=== PATIENT | male | born 1980 | race Two or more races ===

== ENCOUNTER 2025-07-22 19:30 | Emergency (ER) | payer MEDICAID, SELFPAY ==
[2025-07-22 19:32] VITALS: BMI 37.9
[2025-07-22 20:13] VITALS: BP 141/74; PULSE 106; RESP 18; TEMP 37; O2SAT 95
--- NOTE | 2025-07-22 20:38 | PD.EDSKIN ---
ED Skin Abcess FB-RME/HPI General Chief complaint: Skin/Abscess/Foreign Body Stated complaint: ABSCESS ON BACK OF NECK Time Seen by Provider: 07/22/25 20:22 Arrival date/time: 07/22/25 19:30 RME / HPI RME / HPI narrative: 44-year-old male patient came in for evaluation regarding request for IV antibiotic. Patient is currently seen by PCP, and currently taking Bactrim and Keflex for the last 5 days. Secondary to posterior neck subcutaneous abscess. He had a CT scan done in [place] and showed subcutaneous abscess/phlegmon. Currently patient is not having any pain no redness noted no fever. Patient is requesting for IV antibiotic. Denies any other complaints. Related Data Home Medications ?Medication ?Instructions ?Recorded ?Confirmed lisinopril 20 mg tablet 20 mg PO QDAY #0 tabs 05/15/17 09/13/23 metformin 1,000 mg tablet 1,000 mg PO BID #0 tabs 05/15/17 09/13/23 (Glucophage) simvastatin 40 mg tablet (Zocor) 40 mg PO HS #0 tabs 05/15/17 09/13/23 fenofibrate nanocrystallized 48 mg 48 mg PO 09/13/23 tablet glipizide 2.5 mg tablet, extended 2.5 mg PO 09/13/23 release 24 hr Previous Rx's ?Medication ?Instructions ?Recorded sitagliptin phosphate 50 mg tablet 25 mg (1/2 x 50 mg) PO QDAY #30 05/20/17 (Januvia) tabs acetaminophen 500 mg tablet 1,000 mg (2 x 500 mg) PO QID PRN 02/14/21 (Tylenol Extra Strength) fever or pain #30 tabs nystatin 100,000 unit/gram topical 1 applic topical TID #60 grams 02/14/21 cream sulfamethoxazole 800 1 tab PO BID #14 tabs 09/14/23 mg-trimethoprim 160 mg tablet (Bactrim DS) Allergies Allergy/AdvReac Type Severity Reaction Status Date / Time No Known Allergies Allergy Verified 09/13/23 09:01 Review of Systems Review of Systems Narrative Review of Systems: Review of system reviewed and within normal limits except mentioned in HPI ED Exam Narrative Physical exam: VITAL SIGNS: Reviewed. GENERAL APPEARANCE: Alert and interactive, follows commands, no acute distress, HEAD AND FACE: Non-traumatic. ENT: PERRL, pink conjunctivitis, eyelid no trauma, Mucous membrane moist. NECK: Supple, nontender, no nuchal rigidity. +2x2 cm movable mass noted on the posterior aspect of the neck nontender no redness noted CHEST: No tenderness, no crepitus, no paradoxical movement, no retractions. LUNGS: Clear, well ventilated, symmetric, no rales, no wheezing, no ronchi, no stridor, good breath sounds bilaterally. HEART: Regular rate, regular rhythm, no murmur, no gallops. ABDOMEN: Soft, positive bowel sounds, nondistended, no guarding, nontender, no rebound, no masses, RECTAL: Deferred. GENITAL: Deferred. NEUROLOGICAL: Gross motor function intact sensory function intact, Appropriate for age. MUSCULOSKELETAL: low back nontender, full range of motion. EXTREMITIES: Nontender, full range of motion. SKIN: Color pink, dry, no rash, no lacerations, no abrasions, no contusions. LYMPHATICS: Deferred. Course Quality Measures none Orders Category Date Time Status 1,000 mg IM w/Lido* 1% Med 07/22/25 20:38 Ordered cefTRIAXone [Rocephin] 1,000 mg Lidocaine 1% 20 ml [Xylocaine 1% 20 ML] 2.1 ml IM X1 Vital Signs Vital signs: Vital Signs Temperature 98.6 F 07/22/25 20:13 Pulse Rate 106 H 07/22/25 20:13 Respiratory Rate 18 07/22/25 20:13 Blood Pressure 141/74 H 07/22/25 20:13 Pulse Oximetry (%) 95 07/22/25 20:13 Oxygen Delivery Method Room Air 07/22/25 20:13 Skin / Abscess / Foreign Body MDM Narrative MDM Narrative:: 44-year-old male patient came in for evaluation regarding request for IV antibiotic. Patient is currently seen by PCP, and currently taking Bactrim and Keflex for the last 5 days. Secondary to posterior neck subcutaneous abscess. He had a CT scan done in [place] and showed subcutaneous abscess/phlegmon. Currently patient is not having any pain no redness noted no fever. Patient is requesting for IV antibiotic. Denies any other complaints. Incision and drainage is not needed at this time, the abscess is too deep. Patient will receive ceftriaxone IM and advised him to continue the Keflex and Bactrim and follow-up with PCP. Patient agrees with the plan. Clinically there is no sign of sepsis. Patient data External records reviewed:: None Clinical information provided by:: patient Social determinants that could affect healthcare access:: none Patient has the following chronic illnesses:: None How is presenting disease/condition affected by chronic disease/condition?: no chronic disease Evaluation data The following diagnostics were reviewed and interpreted by me:: other (specify) (None) Lab and/or radiology exams considered but not ordered:: None Interpretation Summary: None Medications / Prescriptions Medications or Prescriptions considered but not ordered:: None Medication administrations:: None Consultations Consultation(s) initiated? (list below): No Diagnosis Skin/Abscess Differential Diagnosis: abscess of skin or subcutaneous tissue, cellulitis and impetigo Most likely diagnosis given after review of the tests above:: Posterior neck abscess Admission Indicated Admission indicated?: not indicated Admission Request Was there a request for admission?: No Disposition Plan Disposition Plan: Discharge Discharge Attestation Discharge Attestation: The patient was given an opportunity to ask questions and understood the discharge instructions. Discharge instructions specifically effects, indications for sooner follow up or return to the emergency department, and the expected course of current diagnosis. Patient condition: Stable Discharge Plan Plan Patient Disposition: HOME (Self Care) Discharge Disposition comment: stable Prescriptions/Referrals Prescriptions/Med Rec: No Action lisinopril 20 MG tablet 20 mg PO QDAY Qty: 0 simvastatin [Zocor] 40 MG tablet 40 mg PO HS Qty: 0 metformin [Glucophage] 1,000 MG tablet 1,000 mg PO BID Qty: 0 Januvia 50 MG tablet 25 mg PO QDAY Qty: 30 0RF Patient Comments: Per patient takes 100 mg daily. acetaminophen [Tylenol Extra Strength] 500 mg tablet 1,000 mg PO QID PRN (Reason: fever or pain) Qty: 30 0RF Patient Comments: Does not take. nystatin 100,000 unit/gram cream 1 applic topical TID Qty: 60 0RF Patient Comments: Per patient does not take. glipizide 2.5 mg tablet extended release 24hr 2.5 mg PO Patient Comments: TAKE ONE TABLET BY MOUTH EVERY MORNING fenofibrate nanocrystallized 48 mg tablet 48 mg PO Patient Comments: TAKE ONE TABLET BY MOUTH EVERY DAY sulfamethoxazole-trimethoprim [Bactrim DS] 800-160 mg tablet 1 tab PO BID Qty: 14 0RF Referrals: Sherie Arriaza PA-C [Primary Care Provider, Family Practice] - In 1 week Problem List Clinical Impression: Abscess of skin or subcutaneous tissue Patient/Caregiver Discharge Instructions Discharge Activity: activity as tolerated Education Materials: ED Abscess Antibiotic ... Additional Instructions: Thank you for the opportunity for serving you today. You are stable for discharged . You are advised to: Follow-up with your PCP in 1 to 2 days Return to ED for worsening of symptoms Increase oral fluids Take medication as prescribed prescribed by your PCP Print Language: [place]arag[place] Stand Alone Forms: [employer] Award Info., Patient Portal Info Letter
[2025-07-22] MEDS: cefTRIAXone 1,000 MG, LIDOCAINE 1% 20 ML 2.1 ML IM (20:50)
== END 2025-07-22 20:58 | disposition home or self-care (01) ==
PROVIDERS: Emergency Provider Emergency Medicine; PCP Physician Assistant
DX: L02.11 Cutaneous abscess of neck (principal)
CPT/HCPCS: 96372; 99283; J0696; J3490

== ENCOUNTER → 2025-08-25 | Outpatient (CLI) | payer MEDICAID, SELFPAY ==
--- NOTE | 2025-08-25 14:00 | XR_ITS ---
EXAMINATION: Renal retroperitoneal sonography complete TECHNIQUE: Grayscale sonographic images kidneys, urinary bladder complete Date and time: August 25, 2025, 1404 hours INDICATIONS: History kidney stone, flank pain months FINDINGS: Right kidney 13.6 cm renal cortex 2.7 cm Left kidney 13.5 cm cortex 2.5 cm Mild left hydronephrosis No renal calculi Mild renal parenchymal scar formation No bladder mass or bladder calculi Bladder prevoid volume 791 cc Prostate 13 cc no prostate nodules IMPRESSION: Mild left hydronephrosis Mild bilateral renal parenchymal scar formation
== END | disposition home or self-care (01) ==
PROVIDERS: PCP Physician Assistant; Referring Provider Physician Assistant; Visit Provider Physician Assistant
DX: N13.30 Unspecified hydronephrosis (principal); N28.89 Other specified disorders of kidney and ureter
CPT/HCPCS: 76770